=== PATIENT | female | born 1970 ===

== ENCOUNTER 2016-11-14 17:24 | Emergency (ER) | payer OTHER ==
[2016-11-14 17:56] VITALS: BP 132/90; PULSE 90; RESP 16; TEMP 98.2; O2SAT 96
--- NOTE | 2016-11-14 18:17 | UCPHY ---
[id number] 4d 11/14/16 17:48 HPI/ROS: CHIEF COMPLAINT: Nasal congestion, rhinorrhea, cough HISTORY OF PRESENT ILLNESS: 46-year-old female presents to urgent care by private vehicle complaining of nasal congestion and rhinorrhea for the last 2 days. She has also noticed a sore throat. She has an occasional cough. She denies pain in her chest or trouble breathing. She denies headache or facial pain. The patient is concerned because she uses a CPAP machine at night and has not been able to sleep because of her cold symptoms. Her had similar symptoms. No recent travel. She received a flu shot this past fall. She denies abdominal pain or vomiting. REVIEW OF SYSTEMS: Constitutional: No fever, no chills. Eyes: No double or blurry vision. ENT: Sore throat, nasal congestion, rhinorrhea. Respiratory: Occasional cough, no shortness of breath Cardiac: No chest pain. Gastrointestinal: No abdominal pain, vomiting or diarrhea. Genitourinary: No dysuria. Musculoskeletal: No neck or back pain. Skin: No rashes. Neurological: No headache. (Carol Grace) Past Medical/Surgical History: Sleep apnea, myomectomy, D and C, (Carol Grace) Social History: and lives in [place] (Carol Grace) Physical Exam: General Appearance: Alert, no distress. 132/90, 96% on room air, temperature 36.8 Eyes: Pupils equal and round. Extraocular motions are all intact. ENT: Mouth: Mucous membranes moist. Swollen turbinates with clear rhinorrhea noted. Nontender to palpate over maxillary or frontal sinuses bilaterally. Respiratory: No wheezing, rhonchi, or rales, lungs are clear to auscultation. Cardiovascular: Regular rate and rhythm. Gastrointestinal: Abdomen is soft and nontender, no masses, no rebound or guarding, bowel sounds normal. Neurological: Alert and oriented x 3, cranial nerves II through XII grossly intact Skin: Warm and dry, no rashes. Musculoskeletal: Nontender to palpate along the cervical, thoracic or lumbar spine. Neck is supple. Extremities: Full range of motion and no peripheral edema. Psychiatric: Patient is oriented X 3, there is no agitation. (Carol Grace) Constitutional: Initial Vital Signs Temperature (C) 36.8 C 11/14/16 17:47 Heart Rate 90 11/14/16 17:47 Respiratory Rate 16 11/14/16 17:47 Blood Pressure 132/90 H 11/14/16 17:47 O2 Sat (%) 96 11/14/16 17:47 O2 Delivery Mode Room Air Allergies/Adverse Reactions: Penicillins Allergy (Intermediate, Verified 11/14/16 17:56) Rash Home Medications: Medication Instructions Recorded Atorvastatin Calcium 05/19/14 Lisinopril 11/14/16 Medical Decision Making ED Course/Re-evaluation: 46-year-old female presents to urgent care with nasal congestion and rhinorrhea. No fevers. I do not think this patient has strep pharyngitis. She has a mild sore throat but her predominant complaint is nasal congestion, rhinorrhea and unable to sleep at night. She has no posterior pharyngeal injection noted. Influenza swab was sent by the nurse. I encouraged the patient to use [id number] Mucinex, Sudafed, Afrin nasal spray and humidifier in her room. The patient does not have history of sinus infections in the past. Influenza was negative. (Carol Grace) Differential Diagnosis: Including but not limited to influenza, viral upper respiratory infection, strep pharyngitis, sinusitis, bronchitis, pneumonia (Carol Grace) Other Provider: The patient was evaluated and managed by the physician college sports assistant. I have reviewed this chart and I agree with the findings and plan of care as documented , as indicated by my signature. I am the secondary supervising physician. ( Yolanda Kumar) - Data Points Laboratory Results: 11/14/16 17:45 Influenza Typ A,B (DFA) NEGATIVE FOR FLU (NEGATIVE) Departure - Departure Disposition: Home, Routine, Self-Care Clinical Impression: Upper respiratory infection Condition: Good Instructions: Upper Respiratory Infection (ED) Additional Instructions: Adult Pain & Fever Control: We recommend Acetaminophen (Tylenol) and Ibuprofen (Motrin,Advil) for pain and fever control. When fever is high or pain severe, both drugs can be used at the same time, but at different intervals. Please note the time differences. Your dose is: Acetaminophen 1000mg every 4 to 6 hours Ibuprofen 600mg every 8 hours with food Note: do not take Acetaminophen with Hydrocodone (Vicodin, Lortab) or Oycodone (Percocet). These medications also contain Acetaminophen. No more than 3000mg of Acetaminophen should be taken in 24 hours (for an adult). [id number] Mucinex, guaifenesin, 600-1200 mg twice daily to help relieve congestion. Benadryl 50 mg at bedtime to help you sleep if needed. Afrin nasal spray, [id number], for 2-3 days. Sudafed as needed to help relieve congestion. Humidifier in your room as discussed. Referrals: Jose Mejias, DO [Doctor of Osteopathy] - 2-3 days, if not improved (Primary care provider logging operations inspector) - PQRS PQRS Measurement: Not applicable (Carol Grace)
== END 2016-11-14 18:40 | disposition home or self-care (01) ==
LOC: CED 17:24
DX: J02.9 Acute pharyngitis, unspecified (principal)
CPT/HCPCS: 87400-PO; 99214-PO; G0463-PO